=== PATIENT | female | born 1950 | race Caucasian/White ===

== ENCOUNTER 2016-12-03 13:55 | Outpatient (CLI) | payer MEDICARE, OTHER | END 2016-12-03 13:56 | DX: E51.9 Thiamine deficiency, unspecified (principal); E03.9 Hypothyroidism, unspecified; E55.9 Vitamin D deficiency, unspecified ==

== ENCOUNTER 2017-02-25 11:03 | Outpatient (CLI) | payer MEDICARE, OTHER ==
[2017-02-25 20:12] LABS: THYROID STIMULATING HORMONE 0.18 uIU/mL (0.34-5.60)
== END 2017-02-25 23:59 | disposition home or self-care (01) ==
LOC: LAB.WCP 11:03
PROVIDERS: ATTEND Physician Assistant Medical
DX: E03.9 Hypothyroidism, unspecified (principal)
CPT/HCPCS: 36415; 84439; 84443; 84481

== ENCOUNTER 2017-03-14 12:42 | Outpatient (CLI) | payer MEDICARE, OTHER ==
--- NOTE | 2017-03-14 14:34 | Ultrasound Report ---
THYROID ULTRASOUND: 03/14/2017 CLINICAL INDICATION: Hypothyroidism. TECHNIQUE: Real-time scanning was performed with sales and service representative static images obtained. FINDINGS: The right lobe measures 3.5 x 1.8 x 1.5 cm, and the left lobe measures 3.9 x 1.6 x 1.1 cm. The isthmus measures 2 mm. Both lobes demonstrate heterogeneous echotexture. No dominant suspicious lesion is identified. IMPRESSION: SMALL, HETEROGENEOUS THYROID. JOB #: [id number] EXT JOB #:
== END 2017-03-14 12:43 | disposition home or self-care (01) ==
LOC: DI 12:42
PROVIDERS: ATTEND Physician Assistant Medical
DX: E03.9 Hypothyroidism, unspecified (principal)
CPT/HCPCS: 76536

== ENCOUNTER 2017-06-23 14:40 | Outpatient (CLI) | payer MEDICARE, OTHER ==
--- NOTE | 2017-06-24 13:49 | CT Report ---
EXAM CT LUNG SCREEN EXAM DATE: 06/23/2017 03:02 PM. HISTORY: 66-year-old patient with [id number]-oqkb smoking history and other risk factors. Currently smok ing: No. . COMPARISON: Low-dose chest CT 07/02/2016. TECHNIQUE: CT examination of the entire thorax without contrast was performed using low-dose techniqu e. Thin section coronal, axial, sagittal and MIP axial images were obtained. In accordance with CT protocol optimization, one or more of the following dose reduction techniques w ere utilized for this exam: automated exposure control, adjustment of mA and/or KV based on patient s ize, or use of iterative reconstructive technique. FINDINGS: Nodules: Right upper lobe: Stable 3 mm lateral right upper lobe lung nodule on series 4 image 27. Stable 4 mm posterior right upper lobe lung nodule on image 31. Right middle lobe: None. Right lower lobe: Stable 5 mm posterolateral peripheral right lower lobe lung nodule on series 4 imag e 86. Left upper lobe: None. Left lower lobe: Stable 8 x 7 mm posterior medial left lower lobe lung nodule series 4 image 88. Stable 4 mm lateral left lower lobe peripheral lung nodule image 93. Stable 3 mm posterior left lower lobe lung nodule image 109. Emphysema: Mild centrilobular emphysema. Pleura: Unremarkable. Aorta: No aneurysm. Mild atherosclerotic calcifications. Mediastinum: Unremarkable. Coronary Calcifications: Mild. Other Findings: Distended gallbladder within partially imaged upper abdomen. Mild mid to lower thorac ic spine degenerative changes. IMPRESSION: Lung-RADS ASSESSMENT CATEGORY: 2 - Benign appearance or behavior. Stable bilateral lung nodules. Probability of malignancy: Less than 1%. RECOMMENDATION: Continue annual low-dose chest CT screening until no longer eligible for definitive therapy. [facility] Referring Provider Line: [phone] SITE ID: [id number]
== END 2017-06-23 14:41 | disposition home or self-care (01) ==
LOC: DI 14:40
PROVIDERS: ATTEND Physician Assistant Medical
DX: Z12.2 Encounter for screening for malignant neoplasm of respiratory organs (principal); R91.8 Other nonspecific abnormal finding of lung field; Z87.891 Personal history of nicotine dependence

== ENCOUNTER 2017-09-16 10:07 | Emergency (ER) | payer MEDICARE, OTHER ==
[2017-09-16] MEDS ORDERED: methylPREDNISolone SUCCINATE 125 MG/2 ML VIAL IVP STA (10:22)
[2017-09-16] MEDS ORDERED: diphenhydrAMINE INJ 50 MG/ML VIAL IVP STA (10:22)
[2017-09-16] MEDS ORDERED: methylPREDNISolone SUCCINATE 125 MG/2 ML VIAL ONE (10:30)
[2017-09-16] MEDS ORDERED: diphenhydrAMINE INJ 50 MG/ML VIAL ONE (10:31)
--- NOTE | 2017-09-16 10:50 | ED Physician Documentation ---
History of Present Illness - Stated complaint Stated Complaint: ALLERGIC REACTION - Chief complaint Chief Complaint: Allergic Rx - History obtained from History obtained from: Patient (pt is here for evaluation of eye swelling and worsening of rash. She staes that the rash started approx 12-14 days ago. no new exposures. no respiratory symptoms. she states that she went to her [facility] yesterday and received a shot of steroids (no rx of steroids) and a rx for Zantc. pt states that she had benadryl at home. She is here because today she noticed that her eyes were more swollen than normal and she thinks the rash has spread to around her ears.) Review of Systems Constitutional: denies: Fever, Chills Eyes: reports: Other (swelling under her eyes). denies: Loss of vision, Photophobia Ears: reports: Other (rash around the ears) Nose: denies: Rhinorrhea / runny nose, Congestion, Sinus pressure / pain Throat: denies: Sore throat Cardiac: denies: Chest pain / pressure Respiratory: denies: Dyspnea, Cough GI: denies: Abdominal Pain, Nausea, Vomiting, Constipation, Diarrhea : denies: Dysuria, Frequency Skin: reports: Rash. 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: Hysterectomy - Present Medications Home Medications: Ambulatory Orders Medication Instructions Recorded Confirmed Labetalol [Trandate] 100 mg PO TID 07/11/16 09/16/17 Thyroid,Pork [[place] Thyroid] 90 mcg PO DAILY 07/11/16 09/16/17 Albuterol Sulfate [Proair Hfa 2 puffs PO Q4HR PRN 09/16/17 09/16/17 Inhaler] Labetalol [Trandate] 300 mg PO DAILY 09/16/17 09/16/17 Loratadine 10 mg PO DAILY 09/16/17 09/16/17 Montelukast Sodium 10 mg PO DAILY 09/16/17 09/16/17 Ranitidine HCl [Acid Roving Or Yarn Color Checker] 150 mg PO TID 09/16/17 09/16/17 predniSONE [Prednisone] 60 mg PO DAILY #21 tablet 09/16/17 - Allergies Allergies/Adverse Reactions: Allergies Allergy/AdvReac Type Severity Reaction Status Date / Time No Known Drug Allergies Allergy Verified 07/11/16 13:16 - Social History Does the pt smoke?: No Smoking Status: Never smoker Results - Vitals Vitals: Vital Signs - 24 hr 09/16/17 09/16/17 09/16/17 10:12 11:00 11:30 Temperature 36.9 C Heart Rate 75 68 66 Respiratory 19 16 18 Rate Blood Pressure 135/72 H 119/52 L 127/72 O2 Saturation 98 97 97 09/16/17 09/16/17 11:48 13:35 Temperature 36.7 C 36.8 C Heart Rate 66 75 Respiratory 15 16 Rate Blood Pressure 127/72 127/67 O2 Saturation 97 95 Oxygen O2 Source Room air - Labs Labs: Laboratory Tests 09/16/17 09/16/17 10:33 10:33 WBC 5.5 RBC 3.38 L Hgb 11.7 L Hct 34.1 L MCV 101.0 H MCH 34.6 H MCHC 34.2 RDW 12.9 Plt Count 238 MPV 8.1 Neut # 3.9 Lymph # 0.6 L George # 0.5 Eos # 0.5 Baso # 0.0 Absolute Nucleated RBC 0.00 Nucleated RBC % 0.0 Sodium 139 Potassium 4.2 Chloride 109 Carbon Dioxide 23 Anion Gap 7.0 BUN 16 Creatinine 0.8 Estimated GFR (MDRD) 72 L Glucose 93 Calcium 8.8 PD MEDICAL DECISION MAKING - ED course Complexity details: d/w patient ED course: normal PLT on labs today. Doubt ITP, TTP, HUS, DIC. she reports improvement in the itching after the steroids and benadryl here but no change in the rash. No known exposures. No respiratory issues. She has benadryl and Zantac at home. will give a course of steroids for the next couple days. She was given return precautions. Departure - Departure Disposition: 01 Home, Self Care Clinical Impression: Rash Condition: Good Instructions: Rash Skin Self Care Follow-Up: Shyanne Ivey PA-C [Primary Care Provider] - Prescriptions: predniSONE [Prednisone] 60 mg PO DAILY #21 tablet Comments: take the medications as instructed. Call your primary care provider for a follow up. Return to the ER for any new or worsening symptoms
[2017-09-16 10:59] LABS: BASOPHILS % (AUTO) 0.3 %; EOSINOPHILS # (AUTO) 0.5 10^3/uL (0.0-0.7); EOSINOPHILS % (AUTO) 8.7 %; HCT - HEMATOCRIT 34.1 % (37.0-47.0); HGB - HEMOGLOBIN 11.7 g/dL (12.0-16.0); LYMPHOCYTES # (AUTO) 0.6 10^3/uL (1.5-3.5); LYMPHOCYTES % (AUTO) 11.1 %; MEAN CORPUSCULAR HEMOGLOBIN 34.6 pg (27.0-31.0); MEAN CORPUSCULAR HGB CONC 34.2 g/dL (32.0-36.0); MEAN PLATELET VOLUME 8.1 fL (7.9-10.8); MONOCYTES # (AUTO) 0.5 10^3/uL (0.0-1.0); MONOCYTES % (AUTO) 9.4 %; NEUTROPHILS # (AUTO) 3.9 10^3/uL (1.5-6.6); NEUTROPHILS % (AUTO) 70.5 %; RED BLOOD COUNT 3.38 10^6/uL (4.20-5.40); RED CELL DISTRIBUTION WIDTH 12.9 % (12.0-15.0); UNCORRECTED WHITE BLOOD COUNT 5.5 x10^3/uL; WHITE BLOOD COUNT 5.5 x10^3/uL (4.8-10.8)
[2017-09-16 11:01] LABS: CALCIUM 8.8 mg/dL (8.5-10.3); CREATININE 0.8 mg/dL (0.4-1.0); POTASSIUM 4.2 mmol/L (3.5-5.0)
[2017-09-16 14:12] VITALS: BP 133/62
== END 2017-09-16 14:12 | disposition home or self-care (01) ==
LOC: ED 10:07
DX: R21 Rash and other nonspecific skin eruption (principal); L29.9 Pruritus, unspecified; I10 Essential (primary) hypertension; E03.9 Hypothyroidism, unspecified
CPT/HCPCS: 36415; 80048; 85025; 96374; 96375; 99283; 99284

== ENCOUNTER 2017-09-18 11:14 | Outpatient (CLI) | payer MEDICARE, OTHER ==
[2017-09-18 19:19] LABS: BASOPHILS % (AUTO) 0.4 %; EOSINOPHILS # (AUTO) 0.1 10^3/uL (0.0-0.7); EOSINOPHILS % (AUTO) 0.9 %; HGB - HEMOGLOBIN 11.4 g/dL (12.0-16.0); LYMPHOCYTES # (AUTO) 0.6 10^3/uL (1.5-3.5); LYMPHOCYTES % (AUTO) 7.3 %; MEAN CORPUSCULAR HEMOGLOBIN 34.3 pg (27.0-31.0); MEAN CORPUSCULAR HGB CONC 33.1 g/dL (32.0-36.0); MEAN CORPUSCULAR VOLUME 103.7 fL (81.0-99.0); MONOCYTES # (AUTO) 0.2 10^3/uL (0.0-1.0); MONOCYTES % (AUTO) 2.4 %; NEUTROPHILS # (AUTO) 7.2 10^3/uL (1.5-6.6); PLT - PLATELET COUNT 266 10^3/uL (130-450); RED BLOOD COUNT 3.31 10^6/uL (4.20-5.40); RED CELL DISTRIBUTION WIDTH 13.4 % (12.0-15.0); WHITE BLOOD COUNT 8.1 x10^3/uL (4.8-10.8)
[2017-09-18 19:33] LABS: ALBUMIN 3.9 g/dL (3.2-5.5); ALBUMIN/GLOBULIN RATIO 1.6 (1.0-2.2); BILIRUBIN,TOTAL 0.5 mg/dL (0.2-1.0); CALCIUM 8.8 mg/dL (8.5-10.3); CREATININE 0.8 mg/dL (0.4-1.0); TOTAL PROTEIN 6.4 g/dL (6.7-8.2)
== END 2017-09-18 11:15 | disposition home or self-care (01) ==
LOC: LAB.WCP 11:14
PROVIDERS: ATTEND Physician Assistant Medical
DX: L23.9 Allergic contact dermatitis, unspecified cause (principal); Z51.81 Encounter for therapeutic drug level monitoring; Z79.899 Other long term (current) drug therapy; R23.3 Spontaneous ecchymoses
CPT/HCPCS: 36415; 80053; 81599; 85025; 86001

== ENCOUNTER 2018-08-19 11:30 | Outpatient (CLI) | payer MEDICARE, OTHER ==
--- NOTE | 2018-08-21 13:04 | Mammography Report ---
Reason: SCREENING MAMMO Procedure Date: 08/19/2018 Accession Number: [id number] / [id number] Procedure: JULES - Screening Mammo w/Azael CPT Code: FULL RESULT: EXAM: Screening Mammo w/Azael DATE: 08/19/2018 12:15 PM CLINICAL HISTORY: 67-year-old female with history of early menses and family history of breast cancer in a sister at the age of 45 for screening. The patient had a benign left breast biopsy in 2006. TECHNIQUE: Bilateral CC and MLO views were obtained. COMPARISON: 07/02/2016, 05/25/2013, 06/08/2009. FINDINGS: The breasts demonstrate scattered fibroglandular densities bilaterally. No suspicious masses, clustered microcalcifications, or regions of architectural distortion are identified. IMPRESSION: Negative examination RECOMMENDATION: Routine annual screening unless otherwise clinically indicated. BIRADS CATEGORY 1: Negative STANDARD QUALIFYING STATEMENTS: 1. This examination was not reviewed with the aid of Computer-Aided Detection (CAD). 2. A negative or benign imaging report should not delay biopsy if clinically suspicious findings are present. Consider surgical consultation if warranted. More than 5% of cancers are not identified by imaging. 3. Dense breasts may obscure an underlying neoplasm. 4. This examination was reviewed with the aid of 3D breast imaging (tomosynthesis).
== END 2018-08-19 11:31 | disposition home or self-care (01) ==
LOC: DI 11:30
DX: Z12.31 Encounter for screening mammogram for malignant neoplasm of breast (principal); Z80.3 Family history of malignant neoplasm of breast
CPT/HCPCS: 77063; 77067

== ENCOUNTER 2018-08-19 11:31 | Outpatient (CLI) | payer MEDICARE, OTHER ==
--- NOTE | 2018-08-19 17:16 | CT Report ---
Reason: PERSONAL HISTORY OF NICOTINE DEPENDENCE Procedure Date: 08/19/2018 Accession Number: [id number] / [id number] Procedure: CT - Chest/Lung Screen Low Dose W/O CPT Code: FULL RESULT: EXAM CT LUNG SCREEN EXAM DATE: 08/19/2018 12:02 PM. HISTORY: 67-year-old patient with 27-cqqi-kfot smoking history. Currently smoking: No. Years since quittin. COMPARISON: CHEST SCREEN LOW DOSE W/O 06/23/2017 3:00 PM CHEST SCREEN LOW DOSE W/O 07/02/2016 8:39 AM. TECHNIQUE: CT examination of the entire thorax without contrast was performed using low-dose technique. Thin section coronal, axial, sagittal and MIP axial images were obtained. In accordance with CT protocol optimization, one or more of the following dose reduction techniques were utilized for this exam: automated exposure control, adjustment of mA and/or KV based on patient size, or use of iterative reconstructive technique. FINDINGS: Nodules: There are numerous solid and sub-solid nodules within the lungs. All of the nodules listed below are stable. Right upper lobe: 0.9 cm groundglass image 32 series 4. 0.6 cm sub-solid lateral image 39. 0.4 cm anteromedial image 39. 0.4 cm posteromedial image 39. Right middle lobe: 0.3 cm image 96. Right lower lobe: 0.5 cm juxtapleural image 95. 0.6 cm sub-solid image 84. 0.5 cm groundglass image 60. 0.4 cm groundglass image 63. Left upper lobe: None. Left lower lobe: 0.4 cm peripheral image 79. 0.4 cm image 94. 0.8 cm image 93. Emphysema: None. Pleura: No evidence of pleural effusion. Aorta: Unremarkable. Mediastinum: Unremarkable. Coronary calcifications: None. Other pulmonary findings: Mild atelectasis/scarring within the medial aspect of the right middle lobe. No acute infiltrate or effusion. No pneumothorax. Other extrapulmonary findings: None. IMPRESSION: Lung-RADS ASSESSMENT CATEGORY: 2. - Benign appearance or behavior. Probability of malignancy: Less than 1% RECOMMENDATION: Continue annual screening with low-dose CT in 12 months. Recommended follow up based on Lung-RADS guidelines. [facility]
== END 2018-08-19 11:32 | disposition home or self-care (01) ==
LOC: DI 11:31
PROVIDERS: ATTEND Family Medicine
DX: R91.8 Other nonspecific abnormal finding of lung field (principal); Z12.2 Encounter for screening for malignant neoplasm of respiratory organs; Z87.891 Personal history of nicotine dependence

== ENCOUNTER 2018-09-04 11:15 | Outpatient (CLI) | payer MEDICARE, OTHER | END 2018-09-04 11:16 | disposition home or self-care (01) | LOC: DI 11:15 | PROVIDERS: ATTEND Family Medicine | DX: R06.09 Other forms of dyspnea (principal); I34.0 Nonrheumatic mitral (valve) insufficiency; I51.7 Cardiomegaly | CPT/HCPCS: 93306 ==

== ENCOUNTER 2020-03-07 08:13 | Outpatient (CLI) | payer MEDICARE, OTHER ==
[2020-03-07 15:44] LABS: BASOPHILS % (AUTO) 0.7 %; EOSINOPHILS # (AUTO) 0.3 10^3/uL (0.0-0.7); HGB - HEMOGLOBIN 12.1 g/dL (12.0-16.0); LYMPHOCYTES % (AUTO) 18.5 %; MEAN CORPUSCULAR HGB CONC 32.8 g/dL (32.0-36.0); MEAN CORPUSCULAR VOLUME 106.6 fL (81.0-99.0); MEAN PLATELET VOLUME 11.1 fL (7.9-10.8); MONOCYTES # (AUTO) 0.6 10^3/uL (0.0-1.0); MONOCYTES % (AUTO) 11.2 %; NEUTROPHILS # (AUTO) 3.4 10^3/uL (1.5-6.6); NEUTROPHILS % (AUTO) 64.2 %; PLT - PLATELET COUNT 262 10^3/uL (130-450); RED BLOOD COUNT 3.46 10^6/uL (4.20-5.40); RED CELL DISTRIBUTION WIDTH 13.4 % (12.0-15.0); WHITE BLOOD COUNT 5.4 x10^3/uL (4.8-10.8)
[2020-03-07 16:03] LABS: ALBUMIN/GLOBULIN RATIO 1.4 (1.0-2.2); ALKALINE PHOSPHATASE 54 IU/L (42-121); ALT ALANINE AMINOTRANSFERASE 17 IU/L (10-60); AST ASPARTATE AMINOTRANSFERASE 23 IU/L (10-42); BUN - BLOOD UREA NITROGEN 19 mg/dL (6-20); CALCIUM 9.2 mg/dL (8.5-10.3); CARBON DIOXIDE - CO2 25 mmol/L (21-32); CHLORIDE 108 mmol/L (101-111); CHOL/HDL RATIO 2.9 (<4.4); CHOLESTEROL 191 mg/dL; CREATININE 0.9 mg/dL (0.4-1.0); GLUCOSE 91 mg/dL (70-100); HDL CHOLESTEROL 66 mg/dL; LDL CHOLESTEROL,CALCULATED 111 mg/dL; LDL/HDL RATIO 1.7 (<4.4); SODIUM 140 mmol/L (135-145); TOTAL PROTEIN 6.8 g/dL (6.7-8.2); VLDL CHOLESTEROL 14 mg/dL
[2020-03-07 17:30] LABS: FREE T4 (FREE THYROXINE) 0.53 ng/dL (0.58-1.64)
== END 2020-03-07 08:14 | disposition home or self-care (01) ==
LOC: LAB.S 08:13
PROVIDERS: ATTEND Family Medicine
DX: I10 Essential (primary) hypertension (principal); K90.0 Celiac disease; E03.9 Hypothyroidism, unspecified; K86.81 Exocrine pancreatic insufficiency
CPT/HCPCS: 36415; 80053; 80061; 82607; 83721; 84439; 84443; 85025

== ENCOUNTER 2020-06-12 08:00 | Outpatient (CLI) | payer MEDICARE, OTHER ==
--- NOTE | 2020-06-12 12:18 | XRAY Report ---
PROCEDURE: Ribs w/PA Chest LT INDICATIONS: LEFT SIDED RIB PAIN TECHNIQUE: 3 views of the left ribs were acquired, along with a single view chest. COMPARISON: No prior chest radiograph 6 are available for comparison. Correlation is made with prior chest CTs dated 08/19/2018, 06/23/2017, and 07/02/2016 FINDINGS: Surgical changes and devices: None. Bones and chest wall: Remote appearing left posterior rib fractures are seen superiorly, which can b e seen by prior CT. A marker is placed upon the area of rib pain involving the left posterior ribs in feriorly. No acute appearing fractures or dislocations. No suspicious bony lesions. Overlying soft tissues appear unremarkable. Age-appropriate degenerative changes are seen. Lungs and pleura: No pleural effusions or pneumothorax. Lungs appear clear. Mediastinum: The aorta is prominent and tortuous. The cardiac contours are within normal limits. IMPRESSION: No displaced rib fractures are seen by plain film. Remote left posterior rib fractures are seen superiorly. No pneumothorax is detected. Reviewed by: Suhas Raygoza MD on 06/12/2020 11:16 AM [facility] Approved by: Suhas Raygoza MD on 06/12/2020 11:16 AM [facility] Station ID: [id number]
== END 2020-06-12 23:59 | disposition home or self-care (01) ==
LOC: DI.S 08:00
PROVIDERS: ATTEND Physician Assistant
DX: R07.81 Pleurodynia (principal)

== ENCOUNTER 2020-10-24 08:00 | Outpatient (CLI) | payer MEDICARE, OTHER ==
[2020-10-24 19:35] LABS: FREE T3 2.57 pg/mL (2.5-3.9)
[2020-10-24 20:03] LABS: FREE T4 (FREE THYROXINE) 0.89 ng/dL (0.58-1.64)
== END 2020-10-24 08:01 | disposition home or self-care (01) ==
LOC: LAB.WCP 08:00
PROVIDERS: ATTEND Family Medicine
DX: E03.9 Hypothyroidism, unspecified (principal)
CPT/HCPCS: 36415; 84439; 84443; 84481

== ENCOUNTER 2020-11-02 12:08 | Outpatient (CLI) | payer MEDICARE ==
--- NOTE | 2020-11-02 16:15 | CT Report ---
PROCEDURE: Low Dose Lung Cancer Screen INDICATIONS: NICOTINE ADDICTION IN REMISSION TECHNIQUE: Noncontrast low-dose 5 mm thick sections acquired from the pulmonary apices to the posterior costophr enic angles. 7 mm thick coronal and sagittal MIP reformats were then acquired. For radiation dose r eduction, the following was used: automated exposure control, adjustment of mA and/or kV according t o patient size. COMPARISON: None. FINDINGS: Image quality: Excellent. Lungs and pleura: Multiple previous vague groundglass opacities have resolved. Multiple bilateral pulmonary nodules are stable. A 3 mm right lower lobe pulmonary nodule on current image 166/4 and previous 96/4 is stable. A 2 mm subpleural right lower lobe pulmonary nodule on current image 199/4 and previous image 113/4 i s stable. A 9 mm posterior left lower lobe pulmonary nodule on previous image 93/4 and current image 170/4 is s table. A 3 mm pulmonary nodule in the left lower lobe on previous image 93/4 and current image 174/4 is stab le. No new or increasing pulmonary nodules. Mediastinum: Heart size is normal. No pericardial effusion. No mediastinal adenopathy by size crit eria. Thoracic aorta and central pulmonary arteries are normal in size. Esophagus is normal in melodie jennifer. No hiatal hernia. Bones and chest wall: No suspicious bony lesions. No vertebral body compression fractures. No axil natalia or supraclavicular adenopathy by size criteria. The thyroid is normal in size. Abdomen: Visualized upper abdomen solid organs and bowel loops appear normal in the absence of contr ast. IMPRESSION: 1. LungRads category 1: Negative. No nodules and/or definitely benign nodules. 2. Annual low-dose noncontrast CT of the chest is recommended for lung cancer screening. Reviewed by: Diogo Baez MD on 11/02/2020 4:14 PM PST Approved by: Diogo Baez MD on 11/02/2020 4:14 PM PST Station ID: [id number]
== END 2020-11-02 12:09 | disposition home or self-care (01) ==
LOC: DI 12:08
PROVIDERS: ATTEND Family Medicine
DX: Z12.2 Encounter for screening for malignant neoplasm of respiratory organs (principal); R91.8 Other nonspecific abnormal finding of lung field; F17.210 Nicotine dependence, cigarettes, uncomplicated

== ENCOUNTER 2020-11-28 10:42 | Outpatient (CLI) | payer MEDICARE ==
--- NOTE | 2020-11-28 12:44 | Mammography Report ---
BILATERAL DIGITAL SCREENING MAMMOGRAM 3D/2D: 11/28/2020 CLINICAL: Routine screening. Comparison is made to exams dated: 08/19/2018 mammogram, 07/02/2016 mammogram - [facility], and 06/02/2013 mammogram - [facility]. The tissue of both breasts is predominantly fat ty. No significant masses, calcifications, or other findings are seen in either breast. There has been no significant interval change. IMPRESSION: NEGATIVE There is no mammographic evidence of malignancy. A 1 year screening mammogram is recommended. This exam was interpreted at Station ID: [id number]. NOTE: For mammograms, a report in lay terms will be sent to the patient. Approximately 15% of breast malignancies will not be visualized mammographically. In the management of a palpable breast mass, a negative mammogram must not discourage biopsy of a clinically suspicious lesion. Electronically Signed By: Mp Hernadez acr/penrad:11/28/2020 12:00:34 ACR BI-RADS Category 1: Negative 3341F PARENCHYMAL PATTERN: (F) - The breast(s) demonstrate(s) diffuse fatty replacement. BI-RADS CATEGORY: (1) - 1 RECOMMENDATION: (ANNUAL) - Recommend routine annual screening mammography. [id number] 1 year screening LATERALITY: (B)
== END 2020-11-28 10:43 | disposition home or self-care (01) ==
LOC: DI.S 10:42
DX: Z12.31 Encounter for screening mammogram for malignant neoplasm of breast (principal)

== ENCOUNTER 2021-04-30 14:30 | Outpatient (CLI) | payer MEDICARE ==
--- NOTE | 2021-04-30 15:58 | XRAY Report ---
PROCEDURE: Knee 4 View RT INDICATIONS: KNEE PX RT TECHNIQUE: 4 views of the right knee(s) were acquired. COMPARISON: None. FINDINGS: Bones: No fractures or dislocations. No suspicious bony lesions. Tricompartmental degenerative miguel nges with tricompartmental osteophytes and medial joint space narrowing are consistent with osteoarth ritis. The patellofemoral joint demonstrates joint space narrowing of the lateral facet. Soft tissues: No joint effusion. No suspicious soft tissue calcifications. IMPRESSION: Osteoarthritis of the right knee. Reviewed by: Mp Hernadez on 04/30/2021 3:57 PM PDT Approved by: Mp Hernadez on 04/30/2021 3:57 PM PDT Station ID: [id number]
--- NOTE | 2021-04-30 17:35 | XRAY Report ---
PROCEDURE: Lumbar Spine Complete INDICATIONS: LUMBAR SPINAL STENOSIS TECHNIQUE: 5 views of the lumbar spine were acquired. COMPARISON: None. FINDINGS: Bones: 5 [id number] vertebrae are present. There is gentle levocurvature of the lumbar spine c entered at L3. No acute vertebral body compression fractures. No suspicious bony lesions. No pars d efects on the oblique views identified. Multilevel spondylitic changes seen throughout the imaged spi ne with degenerative endplate changes and endplate osteophyte formation. Findings are most pronounced at L4-5 and L5-S1 with associated facet arthropathy. More prominent degenerative endplate changes ar e also seen at L1-2. Soft tissues: Overlying bowel gas pattern is normal. No suspicious soft tissue calcifications. IMPRESSION: Lumbar spine without acute fracture. Multilevel lumbar spondylosis and facet arthropathy most pronounced at L4-5 and L5-S1. Reviewed by: Greg Bustos MD on 04/30/2021 5:33 PM PDT Approved by: Greg Bustos MD on 04/30/2021 5:33 PM PDT Station ID: [id number]
== END 2021-04-30 14:31 | disposition home or self-care (01) ==
LOC: DI.S 14:30
PROVIDERS: ATTEND Family Medicine
DX: M48.061 Spinal stenosis, lumbar region without neurogenic claudication (principal); M47.817 Spondylosis without myelopathy or radiculopathy, lumbosacral region; M25.561 Pain in right knee; M17.11 Unilateral primary osteoarthritis, right knee

== ENCOUNTER 2021-11-09 13:10 | Outpatient (CLI) | payer MEDICARE ==
--- NOTE | 2021-11-09 17:02 | CT Report ---
PROCEDURE: Low Dose Lung Cancer Screen INDICATIONS: NICOTINE ADDICTION IN REMISSION TECHNIQUE: Noncontrast 1mm axial images were acquired from the pulmonary apices to the posterior costophrenic an gles. Axial 5 mm soft tissue kernel reconstructions were performed as well as 8 mm axial MIP and cor onal and sagittal 5 mm reformations. For radiation dose reduction, the following was used: automate d exposure control, adjustment of mA and/or kV according to patient size. COMPARISON: FINDINGS: Image quality: Excellent. Lungs and pleura: No acute air space opacities. No pleural effusions or pneumothorax. Central and peripheral airways are patent and normal in caliber. 3 mm nodule right lower lobe series 6 image 72, unchanged. 4 mm nodule left lower lobe series 6 image 90, unchanged. 5 mm nodule left lower lobe series 6 image 75, unchanged. 8mm nodule left lower lobe series 6 image 71, unchanged Mediastinum: Heart size is normal. No pericardial effusion. No mediastinal adenopathy by size crit eria. Thoracic aorta and central pulmonary arteries are normal in size. Esophagus is normal in melodie jennifer. No hiatal hernia. The coronary arteries have atherosclerotic calcifications. Bones and chest wall: No suspicious bony lesions. No vertebral body compression fractures. No axil natalia or supraclavicular adenopathy by size criteria. The thyroid is normal in size. Abdomen: Visualized upper abdominal solid organs and bowel loops appear normal in the absence of con trast. IMPRESSION: 1. Lung RADS 1. No nodules or definitely benign nodules. 2. Continue annual screening with low-dose chest CT. Reviewed by: Mp Hernadez on 11/09/2021 5:00 PM [facility] Approved by: Mp Hernadez on 11/09/2021 5:00 PM PST Station ID: [id number]
== END 2021-11-09 13:11 | disposition home or self-care (01) ==
LOC: DI 13:10
PROVIDERS: ATTEND Family Medicine
DX: Z12.2 Encounter for screening for malignant neoplasm of respiratory organs (principal); R91.8 Other nonspecific abnormal finding of lung field; F17.201 Nicotine dependence, unspecified, in remission